=== PATIENT | female | born 1950 | race Caucasian/White ===

== ENCOUNTER 2016-08-12 18:43 | Emergency (ER) | payer OTHER ==
--- NOTE | ~2016-08-12 | EKG ---
PATIENT: RIGO PATINO UNIT #: [id number] Ventricular Rate: 81 BPM Atrial Rate: 81 BPM P-R Interval: 146 ms QRS Duration: 78 ms Q-T Interval: 366 ms QTC Calculation(Bezet): 425 ms P [place]: 59 degrees Calculated R [place]: 9 degrees Calculated T [place]: 13 degrees Diagnosis Line: Normal sinus rhythm Diagnosis Line: Normal ECG Diagnosis Line: When compared with ECG of 27-SEP-2014 15:40, Diagnosis Line: No significant change was found Diagnosis Line: Confirmed by ANAMIKA FLANNERY MD ([id number]) on 08/21/2016 Diagnosis Line: 7:57:29 PM INTERPRETING MD: ALMA DELIA JUAREZ
--- NOTE | ~2016-08-12 | CR72 ---
[facility] A Service of [facility] / [facility] RADIOLOGY TEXT RESULTS PATIENT: RIGO PATINO LOCATION: SED : 50 UNIT #: [id number] AGE: [address]: Faisal Rea MD SEX: F ORDER DR: [id number] [address] [address] [id number] E MR#: [id number] Acc #: [id number] NAME: RIGO PATINO : 1950 SEX: F STUDY DATE/TIME: 08/12/2016 19:33 UNIT: SED ROOM: STUDY DESCRIPTION: CR Chest Single View Portable Attending Physician: Faisal Rea M.D. Ordering Physician: Physician Non-Staff Primary Care Physician: Sunny Phan M.D. MEDICAL IMAGING REPORT This report is preliminary unless electronic signature is present. EXAM Single view chest INDICATIONS Shortness of air. Cough for 3 days. FINDINGS Single portable AP view of the chest compared 09/27/2014. There is a right chest wall port and/or central line. Heart mediastinal contours are unchanged. No new pulmonary opacities. There is background COPD and chronic interstitial opacities. IMPRESSION No acute findings or significant change. Dictated by... Massimo Villar M.D. THIS IS AN ELECTRONICALLY VERIFIED REPORT Massimo Villar M.D. at 08/13/2016 2:31 PM TESHA/maurice TD: 08/12/2016 23:54 JOB #: [id number] MEDICAL IMAGING REPORT Page 1 of 1
[~2016-08-12 18:43] MED LIST: ADVAIR 250-501 EACH IH; ALBUTEROL0.83 MG/ML IH; ALBUTEROL17 G1 IH; ALBUTEROL17 GM INH; ALENDRONATE PO; ALEVE PO; ALEVE220 M1 PO; ASPIRIN EC81 M1 PO; AUGMENTIN PO; BAYER ASPIRIN325 M1 PO; BUPROPION HCL200 MG PO; CALCIUM 500 +1 EAC2 PO; CHANTIX1 MG PO; CLARITIN10 M3 PO; CONTRAVE PO; ECOTRIN325 MG PO; ERYTHROMYCIN OPTH OU; FISH OIL 1,0001 CAP PO; FLEXERIL10 M1 PO; LASIX PO; LORTAB 5/500 TA1 TA1 PO; LORTAB 5/500 TA1 TA2 PO; MAGNESIUM27 MG; METOPROLOL TART25 MG PO; NAPROSYN500 MG PO; NEURONTIN100 MG PO; NITROGYLCERIN SUBLINGUAL; NITROQUICK0.4 MG; PREDNISONE PO; PREDNISONE50 MG PO; PROTONIX PO; PROVENTIL; PROVENTIL17 GM INH; REMERON15 MG PO; ROBAXIN500 MG PO; ROBITUSSIN PO; SIMVASTATIN40 MG PO; SINGULAIR PO; SPIRIVA INHALER; SPIRIVA18 MCG INH; ULTRAM PO; VENTOLIN INHALER INH; VITAMIN D2 PO; ZITHROMAX PO; ZOFRAN8 MG PO
[2016-08-12 19:11] LABS: BASOPHIL% 0.5 % (0-2.5); EOSINOPHIL# 0.4 X10e3 (0-0.7); EOSINOPHIL% 4.1 % (0.0-7.0); HEMATOCRIT 43.4 % (35.0-45.0); HEMOGLOBIN 14.4 gm/dL (12.0-16.0); MEAN CELL VOLUME 85.1 FL (83-96); MEAN CORPUSCULAR HEMOGLOBIN 28.3 PG (28-34); MEAN CORPUSCULAR HGB CONC 33.2 g/dL (30-36); MEAN PLATELET VOLUME 8.2 FL (6.5-11.5); MONOCYTE# 0.8 X10e3 (0-1.0); MONOCYTE% 8.3 % (3.0-12.0); NEUTROPHIL# 6.2 X10e3 (1.5-7.1); NEUTROPHIL% 66.1 % (40-75); PLATELET COUNT 183 X10e3 (140-420); RED BLOOD COUNT 5.09 X10e (3.90-5.30); RED CELL DISTRIBUTION WIDTH 13.9 % (11.0-15.5); WHITE BLOOD COUNT 9.4 X10e3 (4.0-10.5)
[2016-08-12 19:13] LABS: DIFF IND NO
[2016-08-12 19:22] LABS: ALBUMIN SERUM 3.7 g/dL (3.5-5.0); BILIRUBIN, DIRECT 0.1 mg/dL (0.0-0.2); BILIRUBIN,INDIRECT 0.5 mg/dL (0.0-0.9); BILIRUBIN,TOTAL 0.6 mg/dL (0.2-2.0); BUN/CREATININE RATIO 13.75; CALCIUM SERUM 8.7 mg/dL (8.4-10.2); CREATININE SERUM 0.8 mg/dL (0.6-1.4); GLOM FILT RATE Estimated 77.4 mL/min (>60); POTASSIUM 3.8 mmol/L (3.5-5.1); PROTEIN TOTAL SERUM 6.9 g/dL (6.0-8.3)
[2016-08-12 19:37] LABS: POC - CKMB <1.0 ng/mL (0.0-7.9); POC - MYOGLOBIN 66.6 ng/mL (0.0-169.0); POC - TROPONIN <0.05 ng/mL (<=0.05)
== END 2016-08-12 20:23 | disposition home or self-care (01) ==
LOC: SED 18:43
PROVIDERS: Emergency Medicine
DX: J44.1 Chronic obstructive pulmonary disease with (acute) exacerbation (principal); J44.9 Chronic obstructive pulmonary disease, unspecified; Z98.890 Other specified postprocedural states; Z90.710 Acquired absence of both cervix and uterus; Z91.040 Latex allergy status; Z79.899 Other long term (current) drug therapy
CPT/HCPCS: 36415; 71010; 80048; 80076; 82553; 83874; 84484; 85025; 93005; 96374; 99284; J2930